=== PATIENT | male | born 1995 | race African-American/Black ===

== ENCOUNTER 2020-09-18 10:45 | Emergency (ER) | payer OTHER, SELFPAY ==
[2020-09-18 10:52] VITALS: BP 111/69; PULSE 91; RESP 18; TEMP 36.3; O2SAT 99; BMI 17.6
--- NOTE | 2020-09-18 10:58 | ED_ITS ---
HPI - Nausea/Vomiting/Diarrhea General Chief complaint: Nausea/Vomiting/Diarrhea Stated complaint: ETOH USE W/VOMITING Time Seen by Provider: 09/18/20 10:57 Source: patient Mode of arrival: ambulatory Limitations: no limitations History of Present Illness HPI Narrative: Patient presents to the for vomiting. Patient states last night he was drinking alcohol all night. Patient states he drank large 3 bottles last night and did not have any food and this morning woke up vomiting. Patient denies any abdominal pain. Patient admits to smoking marijuana also Associated nausea: Yes Related Data Previous Rx's Medication Instructions Recorded famotidine [Pepcid] 20 mg PO BID #20 tab 09/18/20 ondansetron HCl [Zofran] 4 mg PO Q6H PRN #8 tab 09/18/20 Allergies Allergy/AdvReac Type Severity Reaction Status Date / Time No Known Allergies Allergy Verified 09/18/20 10:54 [No Known Allergies*] Review of Systems Review of Systems: Yes all other systems are reviewed and are negative Constitutional: Constitutional: Reports as per HPI and Reports no additional constitutional complaints Eyes: Eyes: Reports as per HPI and Reports no additional eye complaints ENT: Reports system reviewed and no additional complaints, except as documented, Reports as per HPI and Denies odynophagia Cardiovascular: Cardiovascular: Reports as per HPI and Reports no additional cardiovascular complaints Respiratory: Respiratory: Reports as per HPI and Reports no additional respiratory complaints Gastrointestinal: Gastrointestinal: Denies abdominal pain, Reports nausea, Denies odynophagia, Reports vomiting and Denies hematemesis Musculoskeletal: Musculoskeletal: Reports no additional musculoskeletal complaints and Reports as per HPI Neurologic: Reports system reviewed and no additional complaints, except as documented and Reports as per HPI Psychiatric: Psychiatric: Reports no additional psychiatric complaints and Reports as per HPI [facility] Past Medical History Medical History (Updated 09/18/20 @ 13:55 by ANYA Jones) No known health problems Social History Social History Alcohol intake: current Patient Tobacco Use Status: Current everyday Tobacco user Use of substances other than those prescribed or required for medical reasons: Yes Substance Use Type: Marijuana Advance Directives: No Advance Directives Information Provided: No Physical Exam Vital Signs: Vital Signs: Last Vital Signs Temp 97.4 F 09/18/20 10:52 Pulse 91 09/18/20 10:52 Resp 18 09/18/20 10:52 BP 111/69 09/18/20 10:52 Pulse Ox 99 09/18/20 10:52 Body Mass Index 17.6 Const: General: cooperative, healthy appearing, comfortable, no acute distress, well developed and acute distress Orientation/consciousness: patient oriented x3 HENMT: Head: Yes normal to inspection, Yes No palpable skull fracture present, Yes normocephalic and Yes atraumatic Eyes: General: appearance normal, both eyes and all related structures Neck: Neck: Yes normal visual inspection, Yes full ROM, Yes no lymphadenopathy, Yes no meningeal signs, Yes trachea midline, Yes supple and No tender Chest: Chest palpation & inspection: normal inspection of the chest and normal palpation of entire chest wall Resp: Effort & Inspection: normal respiratory effort and able to speak in complete sentences Auscultation: clear to auscultation bilaterally Cardio: Jugular venous distension: no JVD Heart sounds: S1 normal heart sound present and S2 normal heart sound present GI: Inspection: Yes normal to inspection and No abdominal wall ecchymosis Palpation (GI): Soft to palpation, not firm, nontender, no guarding and not rigid : General: No CVA tenderness and Yes no CVA tenderness Back/Spine/Pelvis: Back: no CVA tenderness, No CVA tenderness and No back tenderness Skin: General skin exam: no rashes or lesions noted and elasticity normal Neuro: General: patient oriented x3, gait normal, no meningeal signs and CN's II-XI intact bilaterally Cranial nerves: Yes CN's II-XII intact bilaterally Extrem: General: Yes normal to inspection and Yes full ROM Psych: Appearance: grossly normal, well kempt and not disheveled Course Course Course Narrative: Patient will be treated as alcoholic gastritis. Patient will be given GI cocktail, IV fluids, and labs will be drawn. Reevaluation(s) Reevaluation #1: Patient now comfortable [place]. [place] [id number]. Patient was seen here last year with similar presentation for alcohol intoxication also had elevated white blood cell count and normal abdominal CT scan. For patient's history of chronic elevated white blood cell count. Abdomen is totally benign. LFTs at baseline. Time: 11:20 Reevaluation #2: I went speak to patient and re-evaluated him. Patient once again abdomen is benign soft nontender. Patient states he never had any abdominal pain and does not have abdominal pain presently. Patient states he feels much better. Patient educated that he should eat when he drinks and that he they should practice brat diet and oral hydration to resolve mild dehydration.. Patient also informs she cut down marijuana. No indication for CT scan of abdomen, due to patient not having any abdominal pain. Diagnosis alcoholic gastritis. MDM - Nausea/Vomiting/Diarrhea MDM Narrative Medical decision making narrative: Alcoholic gastritis Lab Data Result diagrams: 09/18/20 11:20 09/18/20 11:20 Labs: Lab Results 09/18/20 09/18/20 09/18/20 Range/Units 11:20 11:20 11:20 WBC 17.7 H (4.8-10.8) X10*3/uL RBC 4.49 L (4.60-5.80) X10*6/uL Hgb 14.3 (14.0-18.0) g/dl Hct 42.4 (42-52) % MCV 94.4 (80-98) fL MCH 31.8 (27.0-33.0) pg MCHC 33.7 (31.0-36.0) g/dl RDW 13.5 (11.0-16.0) % Plt Count 210 (160-400) X10*3/uL MPV 11.7 (9.4-12.4) fL Immature Gran % (Auto) Cancelled Neut % (Auto) Cancelled Lymph % (Auto) Cancelled Candler % (Auto) Cancelled Eos % (Auto) Cancelled Baso % (Auto) Cancelled Lymph # (Auto) Cancelled [place] # (Auto) Cancelled Eos # (Auto) Cancelled Baso # (Auto) Cancelled Abs Immat Gran (auto) Cancelled Absolute Neuts (auto) Cancelled Absolute Nucleated RBC 0.000 (0.0-0.012) X10*3/uL Nucleated RBC % (auto) 0.0 (0.0-0.2) /100WBC Neutrophils % (Manual) 79 H (45-73) % Band Neutrophils % 1 L (3-5) % Lymphocytes % (Manual) 16 L (20-40) % Monocytes % (Manual) 4 (2-11) % Abs Neuts (Manual) 14.2 H (2.2-7.9) X10*3/uL Lymphocytes # (Manual) 2.8 (0.6-4.8) X10*3/uL Monocytes # (Manual) 0.7 (0.0-1.2) X10*3/uL Platelet Estimate NORMAL (NORMAL) Plt Morphology Comment NORMAL RBC Morphology NORMAL Sodium 141 (135-145) mmol/L Potassium 3.9 (3.3-5.1) mmol/L Chloride 106 (96-108) mmol/L Carbon Dioxide 16 L (22-29) mmol/L Anion Gap 23 H (12-20) BUN 24 H (9-16) mg/dL Creatinine 0.94 (0.5-1.4) mg/dL Estim Creat Clear Calc 102.8 Estimated GFR > 60 Random Glucose 110 (60-115) mg/dL Calcium 9.8 (8.4-10.2) mg/dL Total Bilirubin 0.6 (0.0-1.0) mg/dL Direct Bilirubin 0.3 (0.0-0.5) mg/dL AST 53 H (5-37) U/L ALT 44 H (0-40) U/L Alkaline Phosphatase 140 H (39-117) U/L Total Protein 7.9 (6.5-8.0) g/dL Albumin 4.9 (3.5-5.0) g/dL Lipase 9 (8-78) U/L Ethyl Alcohol < 10 mg/dL Discharge Plan Discharge Clinical Impression: Alcoholic gastritis Patient Disposition: Home, Self-Care Instructions: Gastritis (ED), Acute Nausea and Vomiting (ED) Additional Instructions: Return to the ED for any abdominal pain, inability to tolerate solid food/liquid, diarrhea, blood in stool, fever, chills, intractable nausea, vomiting, weakness, dizziness, or any other concerning symptoms. Recommend BRAT Diet ( Bannana, Rice, Apple sauce, [place]). Please follow-up with PCP Prescriptions: New famotidine [Pepcid] 20 mg tablet 20 mg PO BID Qty: 20 RF: 0 ondansetron HCl [Zofran] 4 mg tablet 4 mg PO Q6H PRN (Reason: nausea and vomiting) Qty: 8 RF: 0 Interventions: ED Discharge Assessment Last Done: 09/18/20 14:12 Discharge Date/Time: 09/18/20 14:12 Print Language: Swedish
[2020-09-18] MEDS: Lidocaine HCl Viscous 2 % 15 ML SOLUTION MUCOUS MEM (11:17)
[2020-09-18] MEDS: PHENobarb/Hyoscy/Atropine/Scop 10 ML ELIXIR PO (11:17)
[2020-09-18] MEDS: diphenhydrAMINE HCL 50 MG/ML VIAL IVPUSH (11:18)
[2020-09-18] MEDS: 0.9 % Sodium Chloride 1,000 ML 999 ML IV (11:18)
[2020-09-18] MEDS: Famotidine/PF 20 MG/2 ML VIAL IVPUSH (11:18)
[2020-09-18] MEDS: ondansetron HCL 4 MG/2 ML VIAL IVPUSH (11:18)
[2020-09-18 11:31] LABS: Hematocrit 42.4 % (42-52); Hemoglobin 14.3 g/dl (14.0-18.0); Mean Corpuscular HGB Conc 33.7 g/dl (31.0-36.0); Mean Corpuscular Hemoglobin 31.8 pg (27.0-33.0); Mean Corpuscular Volume 94.4 fL (80-98); Mean Platelet Volume 11.7 fL (9.4-12.4); Platelet Count 210 X10*3/uL (160-400); Red Blood Count 4.49 X10*6/uL (4.60-5.80); Red Cell Distribution Width 13.5 % (11.0-16.0)
[2020-09-18 11:37] LABS: WBC ABN SCTR FOR CBC 1
[2020-09-18] MEDS: Metoclopramide HCl 10 MG/2 ML VIAL IVPUSH (11:43)
[2020-09-18 12:04] LABS: Band Neutrophils Percent 1 % (3-5); Ethanol < 10 mg/dL; Lymphocytes Percent Manual 16 % (20-40); Monocytes Percent Manual 4 % (2-11); Neutrophils Percent Manual 79 % (45-73)
[2020-09-18 12:05] LABS: Lymphocytes Absolute Manual 2.8 X10*3/uL (0.6-4.8); Monocytes Absolute Manual 0.7 X10*3/uL (0.0-1.2); Neutrophils Absolute Manual 14.2 X10*3/uL (2.2-7.9); Platelet Estimate NORMAL (NORMAL); Platelet Morphology Comment NORMAL; RBC Morphology NORMAL; White Blood Count 17.7 X10*3/uL (4.8-10.8)
[2020-09-18 12:26] LABS: Alanine Aminotransferase 44 U/L (0-40); Albumin Level 4.9 g/dL (3.5-5.0); Alkaline Phosphatase 140 U/L (39-117); Anion Gap 23 (12-20); Aspartate Amino Transferase 53 U/L (5-37); Bilirubin Direct 0.3 mg/dL (0.0-0.5); Bilirubin Total 0.6 mg/dL (0.0-1.0); Blood Urea Nitrogen 24 mg/dL (9-16); Calcium 9.8 mg/dL (8.4-10.2); Carbon Dioxide 16 mmol/L (22-29); Chloride 106 mmol/L (96-108); Creatinine Clr Calc Pharmacy 102.8; Estimated Glomerular Filt Rate > 60; Glucose Random 110 mg/dL (60-115); Lipase 9 U/L (8-78); Potassium 3.9 mmol/L (3.3-5.1); Sodium 141 mmol/L (135-145); Total Protein 7.9 g/dL (6.5-8.0)
== END 2020-09-18 14:12 | disposition home or self-care (01) ==
PROVIDERS: Physician Assistant; Emergency Provider Emergency Medicine
DX: K29.20 Alcoholic gastritis without bleeding (principal)
CPT/HCPCS: 36415; 80053; 80076; 82077; 82248; 83690; 85007; 85027; 96361; 96374; 96375; 99284; J1200; J2405; J2765

== ENCOUNTER 2021-01-01 14:08 | Emergency (ER) | payer OTHER, SELFPAY ==
[2021-01-01 14:12] VITALS: BP 124/74; PULSE 70; O2SAT 100
== END 2021-01-01 16:03 | disposition left against medical advice (07) ==
PROVIDERS: Emergency Provider Emergency Medicine
DX: R31.9 Hematuria, unspecified (principal)

== ENCOUNTER 2021-04-14 11:20 | Outpatient (REF) | payer OTHER, SELFPAY ==
[2021-04-14 13:22] LABS: Binax Internal Control QC Valid; Binax Lot number: 9864; Binax Now Covid-19 Ag Negative (Negative)
== END 2021-04-14 11:21 | disposition home or self-care (01) ==
LOC: HO.LAB 11:20
PROVIDERS: Visit Provider Internal Medicine
DX: Z20.822 Contact with and (suspected) exposure to COVID-19 (principal)
CPT/HCPCS: C9803

== ENCOUNTER 2022-01-09 11:30 | Emergency (ER) | payer OTHER, SELFPAY ==
--- NOTE | ~2022-01-09 | XR_ITS ---
EXAMINATION: XR HAND, RIGHT CLINICAL INFORMATION: Fall, trauma, pain, difficulty extending fingers. COMPARISON: None TECHNIQUE: Right hand is imaged in 3 views. FINDINGS: There is subtle oblique radiolucency at neck fourth metacarpal suspicious for fracture. Similarly, there is a subtle cortical irregularity at junction base and proximal shaft fifth metacarpal also suspicious for fracture. The remainder of the bony structures appear intact. There is no dislocation or destructive process. The ulnar variance is neutral. The pronator quadratus fat pad appears normal. XR/XR hand RT 2V IMPRESSION: -Suspect nondisplaced fractures neck 4th metacarpal and base/proximal shaft 5th metacarpal.
[2022-01-09 11:35] VITALS: BP 116/76; PULSE 82; RESP 16; TEMP 37.1; O2SAT 99; BMI 17.3
[2022-01-09] MEDS: Acetaminophen 325 MG TABLET 975 MG PO (12:59)
--- NOTE | 2022-01-09 16:05 | ED_ITS ---
HPI - Extremity Problem General Chief complaint: Extremity Injury, Upper Stated complaint: fall/wrist INJ Time Seen by Provider: 01/09/22 15:33 Source: patient Mode of arrival: ambulatory Limitations: no limitations History of Present Illness HPI Narrative: This is a 26-year-old male presenting to the emergency department with complaints of 4th and 5th metacarpal pain since Saturday 3 days ago. Patient tells me he fell while going up the stairs and landed onto an outstretched hand. He tells me he immediately started experiencing pain and swelling to his hand. He tells me has a hard time straightening out his 4th and 5th digits. Denies numbness or tingling. He tells me he fell he did not hit his head or lose consciousness. Related Data Previous Rx's Medication Instructions Recorded famotidine 20 mg tablet (Pepcid) 20 mg PO BID #20 tabs 09/18/20 ondansetron HCl 4 mg tablet 4 mg PO Q6H PRN nausea and 09/18/20 (Zofran) vomiting #8 tabs ketorolac 10 mg tablet 10 mg PO TID PRN pain 5 days #15 01/09/22 tabs Allergies Allergy/AdvReac Type Severity Reaction Status Date / Time No Known Allergies Allergy Verified 09/18/20 10:54 [No Known Allergies*] Review of Systems Review of Systems: Constitutional : No Weight loss, No Fever, No Chills, No Fatigue, No Malaise ENT/Mouth : No sore throat, No Rhinorrhea Eyes: No Eye Pain, No Swelling, No Redness Cardiovascular : No Chest Pain, No SOB, No Dyspnea on Exertion, No Orthopnea, No Edema, No Palpitations Respiratory : No Cough, No Sputum, No Wheezing Gastrointestinal : No Nausea, No Vomiting, No Diarrhea, No Constipation, No abdominal Pain, No Hematochezia, No Melena Genitourinary : No Dysuria, No Urinary Frequency, No Hematuria, Musculoskeletal : + joint pain, No Myalgias, + Joint Swelling Skin : No Skin Lesions, No rash Neuro : No Weakness, No Numbness, No Dizziness, No Headache Psych : No Anxiety/Panic, No Depression All other systems reviewed and are negative Yes all other systems are reviewed and are negative PMFSH Past Medical History Attestation statement: The following information was validated with the patient. Source: old records reviewed and nursing notes reviewed Medical History No known health problems Social History Social History Alcohol intake: current Patient Tobacco Use Status: Current everyday Tobacco user Substance Use Type: Marijuana Advance Directives: No Advance Directives Information Provided: No Physical Exam Vital Signs: Vital Signs: Last Vital Signs Temp 98.7 F 01/09/22 11:35 Pulse 82 01/09/22 11:35 Resp 16 01/09/22 11:35 BP 116/76 01/09/22 11:35 Pulse Ox 99 01/09/22 11:35 O2 Del Method 01/09/22 11:35 BMI result Body Mass Index 17.3 vss Appearance: Alert.? Oriented X3.? No acute distress.? Head: Normocephalic, atraumatic, no step-offs or deformities Eyes: Pupils equal, round and reactive to light.? ENT: Pharynx normal.? Neck: Normal inspection.? Neck supple.? CVS: Normal heart rate and rhythm.? Pulses normal.? Respiratory: No respiratory distress.? Breath sounds normal.? Abdomen: Soft and nontender.? Skin: Skin warm and dry.? Normal skin color.? Normal skin turgor.? Extremities: No lower extremity edema.? No calf ttp. 5/5 strength to bilateral upper and lower extremities. + pain with palpation to 4th and 5th right metacarpals. Overlying swelling. Pain with straining of 4th and 5th digits. 2+ radial pulses equal bilateral. Normal sensation to bilateral upper extremity digits. Capillary refill less than 2 seconds equal bilateral. No wrist drop bilaterally. Neuro: Oriented X 3.? No motor deficit.? No sensory deficit. CN 2-12 intact Course Reevaluation(s) Reevaluation #1: There is a nondisplaced fracture of the neck of the 4th metacarpal on bas e/proximal shaft of the 5th metacarpal. Patient will be placed in an ulnar gutter splint. Advised to follow-up with orthopedics and return with new or worsening symptoms. At this time I feel comfortable discharge home. Educated on rest, ice, compress and elevate. Educated to take ibuprofen every 6 hours, Tylenol every 4 as needed for pain or discomfort. Time: 16:14 Reevaluation #2: Patient was placed in an ulnar gutter splint, tolerated procedure well, after placing splint neurovascular status intact. Time: 16:40 MDM - Extremity (Nontraumatic) MDM Narrative Medical decision making narrative: 1600 26-year-old male presents with hand pain since Saturday status post falling while going up the stairs, landing onto an outstretched hand. Denies numbness or tingling. On physical examination pain with palpation to right 4th and 5th metacarpals, with overlying swelling. Neurovascularly intact. Concerns for possible fracture/dislocation. Plan at this time is to obtain plain films. Medical Records Attestation: I reviewed the patient's medical records. Lab Data Attestation: I reviewed the patient's lab results. Critical Care Time Critical Care Time Critical Care Time: No Discharge Plan Discharge Clinical Impression: Fracture, metacarpal Patient Disposition: Home, Self-Care Instructions: Hand Fracture (ED), R.I.C.E. Treatment (ED) Additional Instructions: Take your medications as prescribed. If you were prescribed antibiotics today, it is important that you take your medication to their entirety, do not skip any doses, do not finish them early. Follow-up with your primary care provider this week. Return to the emergency department with new or worsening symptoms. Such as fevers, chills, chest pain, shortness of breath, nausea, vomiting, dizziness, headache, vision changes, lethargy, numbness, tingling, inability to wiggle fingers, inability to feel hand, severe swelling or pain In case of emergency call 911 Ketorolac has been sent to your pharmacy. Please do not take this with any other NSAIDs, aspirin or blood thinners. Avoid alcohol while taking this. XR/XR hand RT 2V IMPRESSION: -Suspect nondisplaced fractures neck 4th metacarpal and base/proximal shaft 5th metacarpal. Prescriptions: New ketorolac 10 mg tablet 10 mg PO TID PRN (Reason: pain) 5 Days Qty: 15 0RF Rx Instructions: Tolerated IM in the department No Action famotidine [Pepcid] 20 mg tablet 20 mg PO BID Qty: 20 0RF ondansetron HCl [Zofran] 4 mg tablet 4 mg PO Q6H PRN (Reason: nausea and vomiting) Qty: 8 0RF Referrals: [facility] [Provider Group] - 1 week Physician,Unknown J [Primary Care Provider] - 2 days Stand Alone Forms: Work/School Release
[2022-01-09] MEDS: Ketorolac Tromethamine 15 MG/ML VIAL 30 MG IM (16:43)
--- NOTE | 2022-01-09 17:06 | PC.NURSE ---
Pt evaluated by Anna JOYNER PT AWAKE, ALERT AND ORIENTED X 3. SKIN WARM AND DRY. RESP UNLABORED. DENIES N/V. MEDICATED FOR PAIN. SPLINT APPLIED BY PCT. +[facility]. PT TOLERATED WITHOUT INCIDENT. PLAN IS FOR DC HOME AND F/U WITH ORTHO. PT AGREEABLE TO PLAN
== END 2022-01-09 17:08 | disposition home or self-care (01) ==
PROVIDERS: Emergency Provider Emergency Medicine
DX: S62.304A Unspecified fracture of fourth metacarpal bone, right hand, initial encounter for closed fracture (principal); M79.641 Pain in right hand; W10.9XXA Fall (on) (from) unspecified stairs and steps, initial encounter; Y93.9 Activity, unspecified; Y92.9 Unspecified place or not applicable; Y99.9 Unspecified external cause status
CPT/HCPCS: 29130; 73120; 96372; 99283; 99284; J1885

== ENCOUNTER 2022-01-23 | Outpatient (REF) | payer OTHER, SELFPAY ==
--- NOTE | ~2022-01-23 | XR_ITS ---
EXAMINATION: XR HAND, RIGHT CLINICAL INFORMATION: Pain COMPARISON: 01/09/2022 TECHNIQUE: PA, lateral, and oblique views of the right hand. FINDINGS: There is lucency through the base of fifth metacarpal bone are consistent with the appearance of undisplaced fracture. Additionally, there is deformity of distal metadiaphysis of the second metacarpal bone, most likely related to healing of fracture. Soft tissues unremarkable. XR/XR hand RT min 3V IMPRESSION: Healing fracture of the base of the fifth metacarpal bone and fourth distal metadiaphysis
== END 2022-01-23 00:01 | disposition home or self-care (01) ==
LOC: HO.HOSX
PROVIDERS: Visit Provider Physician Assistant
DX: S62.364D Nondisplaced fracture of neck of fourth metacarpal bone, right hand, subsequent encounter for fracture with routine healing (principal); S62.346D Nondisplaced fracture of base of fifth metacarpal bone, right hand, subsequent encounter for fracture with routine healing; W10.9XXD Fall (on) (from) unspecified stairs and steps, subsequent encounter
CPT/HCPCS: 73130; 99202

== ENCOUNTER 2022-02-06 11:52 | Outpatient (REF) | payer OTHER, SELFPAY ==
--- NOTE | ~2022-02-06 | XR_ITS ---
EXAMINATION: XR HAND, RIGHT CLINICAL INFORMATION: Right hand pain. COMPARISON: Comparison is made to right hand radiographs dated 01/09/2022 and 01/23/2022. TECHNIQUE: PA, lateral, and oblique views of the right hand. FINDINGS: Again seen is an angulation fracture of the distal metaphysis of the fourth metacarpal. Deformity in the distal aspect of the fifth metacarpal is also seen. Remainder the digits are intact. The carpal bones are normally aligned. The distal radius and ulna are intact. The soft tissues are unremarkable. XR/XR hand RT min 3V IMPRESSION: 1. Distal fourth metacarpal fracture with similar angulation and no evidence for significant interval healing. Distal fifth metacarpal findings are age-indeterminate could be secondary to old healed fracture without significant interval change.
== END 2022-02-06 11:53 | disposition home or self-care (01) ==
LOC: HO.HOSX 11:52
PROVIDERS: Visit Provider Physician Assistant
DX: S62.364D Nondisplaced fracture of neck of fourth metacarpal bone, right hand, subsequent encounter for fracture with routine healing (principal); S62.346D Nondisplaced fracture of base of fifth metacarpal bone, right hand, subsequent encounter for fracture with routine healing
CPT/HCPCS: 73130; 99212

== ENCOUNTER 2022-02-12 07:35 | Outpatient (REF) | payer OTHER, SELFPAY ==
--- NOTE | ~2022-02-12 | XR_ITS ---
EXAMINATION: XR HAND, RIGHT CLINICAL INFORMATION: Pain COMPARISON: Right hand 02/06/2022 and 01/09/2022 TECHNIQUE: PA, lateral, and oblique views of the right hand. FINDINGS: There is a healing fracture distal fourth metacarpal and proximal fifth metacarpal. The fracture lines are not visualized. The soft tissues are normal. No new fracture seen. XR/XR hand RT min 3V IMPRESSION: Slowly fracture distal fourth metacarpal and proximal fifth metacarpal. The fracture lines are not visualized.
== END 2022-02-12 07:36 | disposition home or self-care (01) ==
LOC: HO.HOSX 07:35
PROVIDERS: Visit Provider Physician Assistant
DX: M79.641 Pain in right hand (principal)
CPT/HCPCS: 73130

== ENCOUNTER 2022-02-23 17:08 | Emergency (ER) | payer OTHER, SELFPAY ==
--- NOTE | 2022-02-23 18:15 | ED_ITS ---
HPI - URI/Sore Throat General Chief Complaint: Nausea/Vomiting/Diarrhea Stated Complaint: cough,fever,vomitting, watery eyes Time Seen by Provider: 02/23/22 20:37 Source: patient Mode of arrival: ambulatory Limitations: no limitations History of Present Illness HPI Narrative: Patient is a 26 year male presents to the emergency department for evaluation of productive cough, fever, nausea, vomiting, diarrhea. Symptom onset was last night. Reports his mother has tested positive for influenza, both of his daughters are also sick for the past 2 days with similar symptoms. Related Data Home Medications Medication Instructions Recorded Confirmed No Known Home Meds 02/12/22 02/12/22 Allergies Allergy/AdvReac Type Severity Reaction Status Date / Time No Known Allergies Allergy Verified 02/23/22 18:15 [No Known Allergies*] Review of Systems Review of Systems: Constitutional: Positive fever. No chills. No weakness. Positive fatigue. ENT/ Mouth: No Ear Pain, positive Nasal Congestion, no sore throat, No Rhinorrhea, No Swallowing Difficulty Skin: No rash or itching. Cardiovascular: No chest pain. No palpitations. Respiratory: No shortness of breath. Positive cough. No sputum production. Gastrointestinal: Positive nausea. Positive vomiting. Positive diarrhea. No abdominal pain. Genitourinary: No burning micturition. No urinary frequency. Neurologic: No headache. No dizziness. No syncope. No numbness or tingling in the extremities. Musculoskeletal: No muscle pain. No back pain. No joint pain or stiffness. Yes all other systems are reviewed and are negative PMFSH Past Medical History Attestation statement: The following information was validated with the patient. Source: old records reviewed Medical History No known health problems PTSD (post-traumatic stress disorder) Social History Social History Alcohol intake: current Patient Tobacco Use Status: Current everyday Tobacco user Substance Use Type: Marijuana Advance Directives: No Advance Directives Information Provided: No Current occupational status: employed Current occupation: [employer] Physical Exam Vital Signs: Vital Signs: Last Vital Signs Temp 97.9 F 02/23/22 18:16 Pulse 63 02/23/22 18:16 Resp 16 02/23/22 18:16 BP 124/71 02/23/22 18:16 Pulse Ox 98 02/23/22 18:16 O2 Del Method 02/23/22 18:16 BMI result Body Mass Index 15.5 Vital signs have been reviewed as normal and appeared to be correct. Blood pressure normal.? Heart rate normal.? Respiration rate normal. Temperature normal.? Oxygen saturation normal. Appearance: Alert.?Oriented to person, place and time. No acute distress.?Normal affect. Eyes: Pupils equal, round and reactive to light.? ENT: TM normal bilaterally. Pharynx normal.?? Neck: Normal inspection.? Neck supple.??No cervical adenopathy CVS: Heart sounds normal. Normal heart rate and rhythm.? Pulses normal.?? Respiratory: No respiratory distress.? Lung sounds clear to auscultation bilaterally?? Abdomen: Soft and non-tender. Normoactive bowel sounds. Skin: Skin warm and dry.? Normal skin color.? ? Extremities: No lower extremity edema.? Neuro: Moves all extremities spontaneously. Sensation intact bilaterally. No motor deficits. Ambulates with normal steady gait. Course Course Course Narrative: RME: Patient is a 26 year male presents to the emergency department for evaluation of productive cough, fever, nausea, vomiting, diarrhea. Symptom onset was last night. Reports his mother has tested positive for influenza, both of his daughters are also sick for the past 2 days with similar symptoms. PE: No apparent distress, vital signs stable, abdominal examination benign, LSCTA Plan: COVID-19 testing, influenza testing Reevaluation(s) Reevaluation #1: COVID-19 and influenza testing have resulted and are negative. Examination not consistent with pneumonia. No signs of systemic toxicity. Abdominal examination is benign, low suspicion for acute abdomen. Suspect viral syndrome as a source for symptoms. Eating potato chips and drinking soda in the emergency department. Advised rest, acetaminophen/ibuprofen as needed for pain/fever, Robitussin for cough, frequent fluids, bland diet with slow progress ion as tolerated. Patient verbalized understanding. discharged home in stable condition. Time: 20:35 Medications Administered Discontinued Medications Generic Name Dose Route Start Last Admin Trade Name Freq PRN Reason Stop Dose Admin Ondansetron HCl 4 mg 02/23/22 18:18 02/23/22 18:23 Ondansetron Odt 4 Mg Tab.Rapdis TRANSLINGU 02/23/22 18:19 4 mg ONCE ONE Administration MDM - URI/Sore Throat Medical Records Attestation: I reviewed the patient's medical records. Lab Data Attestation: I reviewed the patient's lab results. Labs: Lab Results 02/23/22 02/23/22 Range/Units 18:24 18:24 COVID-19 (THALIA) Negative (Negative) COVID-19 Clin Com See Note Influenza Type A (SHAI) Negative (Negative) Influenza Type B (SHAI) Negative (Negative) Influenza A & B Note See Note Discharge Plan Discharge Clinical Impression: Acute viral syndrome Patient Disposition: Home, Self-Care Instructions: Viral Syndrome (ED) Additional Instructions: Be sure to rest, stay well hydrated drinking plenty of fluids, eat small frequent meals. Tylenol/ibuprofen can be used as needed for fever/pain. [id number] cold medications may be helpful as well for symptoms. Saline nasal spray, humidifier may be helpful for nasal congestion. You may return to the emergency department with any new or worsening symptoms or concerns. Follow-up with your primary care provider as needed. Prescriptions: No Action No Known Home Meds Referrals: Physician,Unknown J [Physician] - Stand Alone Forms: Work/School Release Interventions: ED Discharge Assessment Last Done: 02/23/22 20:43 Discharge Date/Time: 02/23/22 21:02
[2022-02-23 18:16] VITALS: BP 124/71; PULSE 63; RESP 16; TEMP 36.6; O2SAT 98; BMI 15.5
[2022-02-23] MEDS: Ondansetron ODT 4 MG TAB.RAPDIS TRANSLINGU (18:23)
[2022-02-23 18:46] LABS: COVID-19 Test Negative (Negative); IDNOW Serial# BCCEAD1C
[2022-02-23 18:50] LABS: IDNOW Serial# 9DB6401D; Influenza A Negative (Negative); Influenza B2 Negative (Negative)
== END 2022-02-23 21:02 | disposition home or self-care (01) ==
LOC: HO.ED 20:44
PROVIDERS: Nurse Practitioner Family; Emergency Provider Emergency Medicine
DX: B34.9 Viral infection, unspecified (principal); R50.9 Fever, unspecified; Z20.822 Contact with and (suspected) exposure to COVID-19
CPT/HCPCS: 87502; 87635; 99282; 99283

== ENCOUNTER 2022-03-14 13:44 | Outpatient (REF) | payer OTHER, SELFPAY ==
[2022-03-14 14:29] LABS: COVID-19 Test Negative (Negative); IDNOW Serial# 16C4AD1C
== END 2022-03-14 13:45 | disposition home or self-care (01) ==
LOC: HO.LAB 13:44
PROVIDERS: Visit Provider Internal Medicine
DX: Z20.822 Contact with and (suspected) exposure to COVID-19 (principal)
CPT/HCPCS: 87635; C9803

== ENCOUNTER 2023-07-26 14:21 | Emergency (ER) | payer OTHER, SELFPAY ==
[2023-07-26 14:26] VITALS: BP 120/80; PULSE 85; O2SAT 99
--- NOTE | 2023-07-26 15:09 | PC.NURSE ---
attempted to call patient in triage. patient became verbally and physically agressive. Patient refusing to acknowledge alternative dispute resolution mediator. Verbally.
[2023-07-26 15:13] VITALS: BP 122/79; PULSE 70; RESP 18; TEMP 36.7; O2SAT 100; BMI 13.1
--- NOTE | 2023-07-26 15:13 | ED_ITS ---
HPI - General Adult General Chief complaint: Nausea/Vomiting/Diarrhea Stated complaint: VOMITING Time Seen by Provider: 07/26/23 15:24 Source: patient Mode of arrival: ambulatory Limitations: no limitations History of Present Illness HPI narrative: 27-year-old male brought by EMS for vomiting after drinking alcohol last night. Patient was on alcohol binge drinking last night and was vomiting had 1 episode of slight bright red blood. Brother was present during the incident. Patient denies any recent trauma. Right now emesis is clear. Patient denies any pmh of alcohol abuse Related Data Previous Rx's ?Medication ?Instructions ?Recorded famotidine 20 mg tablet (Pepcid) 20 mg PO BID 10 days #20 tabs 07/26/23 Allergies Allergy/AdvReac Type Severity Reaction Status Date / Time No Known Allergies Allergy Verified 07/26/23 15:17 [No Known Allergies*] Review of Systems 2 Review of Systems: Vomiting after drinking alcohol. Yes all other systems are reviewed and are negative PMFSH Past Medical History Medical History No known health problems PTSD (post-traumatic stress disorder) Social History Social History Alcohol intake: current Alcohol intake frequency: a few times a month Alcohol type: beer and hard liquor Patient Tobacco Use Status: Current everyday Tobacco user Smoked in Last 30 Days: Yes Use of substances other than those prescribed or required for medical reasons: No Substance Use Type: Marijuana Advance Directives: No Advance Directives Information Provided: No Do you have a plan to hurt others: No Plan Current occupational status: employed Current occupation: [employer] Physical Exam ED Vital Signs: Vital Signs - 24 hr 07/26/23 15:13 Temperature 98.0 F Pulse Rate 70 Respiratory Rate 18 Blood Pressure 122/79 Pulse Oximetry 100 Oxygen Delivery Method Room Air BMI result Body Mass Index 13.1 Const General: cooperative, healthy appearing, comfortable, no acute distress, well developed, alert, awake and Physically active Orientation/consciousness: oriented to person, oriented to place, oriented to time and patient oriented x3 HENMT Head: Yes normal to inspection, Yes No palpable skull fracture present, Yes normocephalic, Yes atraumatic and No abrasion Eyes General: appearance normal, both eyes and all related structures Neck Neck: Yes normal visual inspection, Yes full ROM, Yes no lymphadenopathy, Yes no meningeal signs, Yes trachea midline, Yes supple, No anterior neck swelling and No tender Chest Chest palpation & inspection: normal inspection of the chest and normal palpation of entire chest wall Resp Effort & Inspection: normal respiratory effort and able to speak in complete sentences Auscultation: clear to auscultation bilaterally Cardio Jugular venous distension: no JVD Heart sounds: S1 normal heart sound present and S2 normal heart sound present GI Inspection: Yes normal to inspection Palpation (GI): Soft to palpation, not firm, nontender, no guarding and not rigid General: Yes no CVA tenderness Back/Spine/Pelvis Back: no CVA tenderness and No back tenderness Skin General skin exam: no rashes or lesions noted, elasticity normal and turgor normal Neuro General: oriented to person, oriented to place, oriented to time, patient oriented x3, gait normal, tone normal, moves all extremities, Normal light touch and pain sensation, no meningeal signs, no focal motor deficits, CN's II-XI intact bilaterally and normal sensation to monofilament Extrem General: Yes normal to inspection, Yes full ROM and Yes capillary refill normal Psych Appearance: grossly normal, well kempt and not disheveled Course Course Course Narrative: RME performed by Rosalva Gauthier PA-C. Patient is a 27 year old assigned male at presenting to the emergency department with nausea, vomiting, and feeling generally unwell after drinking alcohol last night. Detailed physical exam and review of systems are deferred to the spray foam installer. Labs and swabs ordered. Patient placed back in the waiting room pending room availability and results. Medications Administered Discontinued Medications Generic Name Dose Route Start Last Admin Trade Name Tommy PRN Reason Stop Dose Admin Al Hydroxide/Mg Hydroxide 30 ml 07/26/23 15:58 07/26/23 16:16 Magnesium Hydrox/Alum Hydrox 30 Ml Oral.Susp PO 07/26/23 15:59 30 ml ONCE ONE Administration Belladonna Alkaloids/Phenobarbital 10 ml 07/26/23 15:58 07/26/23 16:15 Phenobarb/Hyoscy/Atropine/Scop 10 Ml Elixir PO 07/26/23 15:59 10 ml ONCE ONE Administration Famotidine 20 mg 07/26/23 15:58 07/26/23 16:16 Famotidine/Pf 20 Mg/2 Ml Vial IVPUSH 07/26/23 15:59 20 mg ONCE ONE Administration Sodium Chloride 1,000 mls @ 999 mls/hr 07/26/23 15:15 07/26/23 17:08 Ns IV 07/26/23 16:15 Infused .Q1H1M ALISSA Infusion Sodium Chloride 1,000 mls @ 999 mls/hr 07/26/23 16:11 07/26/23 16:42 Ns IV 07/26/23 17:11 999 mls/hr .Q1H1M STA Administration Lidocaine HCl 15 ml 07/26/23 15:58 07/26/23 16:15 Lidocaine Hcl Viscous 2 % 15 Ml Solution MUCOUS MEM 07/26/23 15:59 15 ml ONCE ONE Administration Ondansetron HCl 4 mg 07/26/23 15:14 07/26/23 15:53 Ondansetron Hcl 4 Mg/2 Ml Vial IVPUSH 07/26/23 15:15 4 mg ONCE ONE Administration Medical Decision Making Medical Decision Making [facility] Narrative: 27-year-old male drinking large amounts of alcohol last night with vomiting since last night 1 episode of vomiting slight blood and vomiting this morning but without any blood. Abdomen is benign on palpation. Labs fluid ordered. 6:57pm; patient's symptoms resolved with fluids in GI cocktail. Patient was in mild alcohol ketoacidosis which was resolved and improved to with IV fluids. Patient also positive for COVID. Patient does not have any respiratory symptoms. Patient explained worrisome sign informed to return to the ED if he has them. Beta hyroxy was elevated due to mild alcoholic ketao acidosis. Differential Diagnosis Differential Diagnoses: The differential diagnosis associated with the presentation includes ( alcoholic gastritis, GERD, pancreatitis) Admission/Observation Consideration of admission/observation: Escalation of care including admission/observation considered Lab Data [facility] Lab Attestation statement: I reviewed the patient's lab results. 07/26/23 15:46 07/26/23 18:21 Labs: Lab Results 07/26/23 07/26/23 07/26/23 Range/Units 15:46 17:25 18:21 WBC 11.8 H (4.8-10.8) X10*3/uL RBC 4.50 L (4.60-5.80) X10*6/uL Hgb 13.8 L (14.0-18.0) g/dl Hct 41.7 L (42.0-52.0) % MCV 92.7 (80.0-98.0) fL MCH 30.7 (27.0-33.0) pg MCHC 33.1 (31.0-36.0) g/dl RDW 14.8 (11.0-16.0) % Plt Count 213 (160-400) X10*3/uL MPV 11.6 (9.4-12.4) fL Immature Gran % (Auto) 0.3 (0.0-0.4) % Neut % (Auto) 84.4 H (45-73) % Lymph % (Auto) 10.9 L (20-40) % [place] % (Auto) 4.1 (2-11) % Eos % (Auto) 0.1 (0-4) % Baso % (Auto) 0.2 (0-2) % Lymph # (Auto) 1.3 (1.2-4.9) X10*3/uL [place] # (Auto) 0.5 (0.1-1.2) X10*3/uL Eos # (Auto) 0.0 (0.0-0.4) X10*3/uL Baso # (Auto) 0.0 (0.0-0.2) X10*3/uL Abs Immat Gran (auto) 0.04 H (0.00-0.03) X10*3/uL Absolute Neuts (auto) 10.0 H (2.0-8.3) x10*3/uL Absolute Nucleated RBC 0.000 (0.0-0.012) X10*3/uL Nucleated RBC % (auto) 0.0 (0.0-0.2) /100WBC Smear Tech's Comments VERIFIED Sodium 143 141 (135-145) mmol/L Potassium 4.4 4.4 (3.3-5.1) mmol/L Chloride 106 111 H (96-108) mmol/L Carbon Dioxide 17 L 18 L (22-29) mmol/L Anion Gap 24 H 16 (12-20) BUN 22 H 17 H (9-16) mg/dL Creatinine 1.05 0.76 (0.5-1.4) mg/dL Estim Creat Clear Calc 74.3 102.7 Estimated GFR > 60 > 60 Random Glucose 69 123 H (60-115) mg/dL Estimat Average Glucose 114 mg/dL Hemoglobin A1c % 5.6 (<6.0) % Calcium 9.4 7.9 L D (8.4-10.2) mg/dL Magnesium 2.3 (1.6-2.6) mg/dL Total Bilirubin 0.5 0.4 (0.0-1.0) mg/dL AST 58 H 61 H (5-37) U/L ALT 34 36 (0-40) U/L Alkaline Phosphatase 117 92 (39-117) U/L Total Protein 8.2 H 7.1 (6.5-8.0) g/dL Albumin 4.7 4.0 (3.5-5.0) g/dL Lipase 6 L (8-78) U/L Beta-Hydroxybutyrate 1.98 H (0.02-0.27) mmol/L Urine Color Yellow Urine Appearance Clear Urine pH 5.5 (5.0-9.0) Ur Specific Maurice 1.020 (1.005-1.025) Urine Protein 30 (1+) H (Neg-Trace) mg/dL Urine Glucose (UA) Negative (Negative) mg/dL Urine Ketones 80 (Negative) mg/dL Urine Blood Trace H (Negative) Urine Nitrite Negative (Negative) Ur Leukocyte Esterase Negative (Negative) Urine RBC 0-2 (0-2) /HPF Urine WBC 0-5 (0-5) /HPF Ur Squamous Epith Cells 0-2 (0-2) /HPF Urine Bacteria None Seen (None Seen) Hyaline Casts 0-2 (0-2) /LPF Influenza Type A (PCR) NEGATIVE (Negative) Influenza Type B (PCR) NEGATIVE (Negative) RSV RNA Qual (PCR) NEGATIVE (Negative) SARS-CoV-2 RNA (RT-PCR) POSITIVE A (Negative) External Record Review External record reviewed: Other (Prior vsits) Discharge Plan Discharge Clinical Impression: GERD (gastroesophageal reflux disease), COVID-19, Alcoholic gastritis Patient Disposition: Home, Self-Care Instructions: Gastritis (ED), Gastroesophageal Reflux Disease (ED), COVID-19 (Coronavirus Disease 2019) (ED) Additional Instructions: recommend follow-up with primary care provider. Return to the ED immediately for vomiting blood, blood in stool, severe abdominal pain, dizziness, weakness, headache, chest pain, shortness of breath, or any other concerning symptoms. Prescriptions: New famotidine [Pepcid] 20 mg tablet 20 mg PO BID 10 Days Qty: 20 0RF Stand Alone Forms: Work/School Release Interventions: ED Discharge Assessment Last Done: 07/26/23 19:35 Discharge Date/Time: 07/26/23 19:35 Print Language: Luxembourgish
[2023-07-26] MEDS: ondansetron HCL 4 MG/2 ML VIAL IVPUSH (15:53)
[2023-07-26] MEDS: 0.9 % Sodium Chloride 1,000 ML 999 ML IV ×2 (15:53→16:42)
[2023-07-26 15:59] LABS: PLT CLUMP 1; SCAN SMEAR FLAG 1
[2023-07-26 16:01] LABS: Basophils Percent Auto 0.2 % (0-2); Eosinophils Percent Auto 0.1 % (0-4); Hematocrit 41.7 % (42.0-52.0); Hemoglobin 13.8 g/dl (14.0-18.0); Imm Gran Abs Auto 0.04 X10*3/uL (0.00-0.03); Imm Gran Pct Auto 0.3 % (0.0-0.4); Lymphocytes Absolute Auto 1.3 X10*3/uL (1.2-4.9); Lymphocytes Percent Auto 10.9 % (20-40); MANUAL DIFF FLAG SCAN; Mean Corpuscular HGB Conc 33.1 g/dl (31.0-36.0); Mean Corpuscular Hemoglobin 30.7 pg (27.0-33.0); Mean Corpuscular Volume 92.7 fL (80.0-98.0); Mean Platelet Volume 11.6 fL (9.4-12.4); Monocytes Absolute Auto 0.5 X10*3/uL (0.1-1.2); Monocytes Percent Auto 4.1 % (2-11); Neutrophils Percent Auto 84.4 % (45-73); Red Cell Distribution Width 14.8 % (11.0-16.0)
[2023-07-26 16:05] LABS: Estimated Average Glucose 114 mg/dL; Hemoglobin A1c % 5.6 % (<6.0)
[2023-07-26 16:06] LABS: White Blood Count 11.8 X10*3/uL (4.8-10.8)
[2023-07-26 16:09] LABS: Beta-Hydroxybutyrate 1.98 mmol/L (0.02-0.27)
[2023-07-26 16:10] LABS: Alanine Aminotransferase 34 U/L (0-40); Albumin Level 4.7 g/dL (3.5-5.0); Alkaline Phosphatase 117 U/L (39-117); Anion Gap 24 (12-20); Aspartate Amino Transferase 58 U/L (5-37); Bilirubin Total 0.5 mg/dL (0.0-1.0); Blood Urea Nitrogen 22 mg/dL (9-16); Calcium 9.4 mg/dL (8.4-10.2); Carbon Dioxide 17 mmol/L (22-29); Chloride 106 mmol/L (96-108); Creatinine Clr Calc Pharmacy 74.3; Estimated Glomerular Filt Rate > 60; Glucose Random 69 mg/dL (60-115); Lipase 6 U/L (8-78); Magnesium 2.3 mg/dL (1.6-2.6); Potassium 4.4 mmol/L (3.3-5.1); Sodium 143 mmol/L (135-145); Total Protein 8.2 g/dL (6.5-8.0)
[2023-07-26] MEDS: Lidocaine HCl Viscous 2 % 15 ML SOLUTION MUCOUS MEM (16:15)
[2023-07-26] MEDS: PHENobarb/Hyoscy/Atropine/Scop 10 ML ELIXIR PO (16:15)
[2023-07-26] MEDS: Famotidine/PF 20 MG/2 ML VIAL IVPUSH (16:16)
[2023-07-26] MEDS: Magnesium Hydrox/Alum Hydrox 30 ML ORAL.SUSP PO (16:16)
[2023-07-26 16:26] LABS: Platelet Count 213 X10*3/uL (160-400); SLIDE REVIEW VERIFIED
[2023-07-26 16:37] LABS: Influenza A PCR NEGATIVE (Negative); Influenza B PCR NEGATIVE (Negative); Resp Syncy Virus RNA Qual PCR NEGATIVE (Negative); SARS COV2 PCR INHOUSE POSITIVE (Negative)
[2023-07-26 17:45] LABS: Appearance Urine Clear; Color Urine Yellow; Glucose Urine UA Negative (Negative); Leukocyte Esterase Urine Negative (Negative); Nitrite Urine Negative (Negative); PH 5.5 (5.0-9.0); UMIC TRIGGER UACC YES; Urine Blood Trace (Negative); Urine Ketones 80 mg/dL (Negative); Urine Protein 30 (1+) mg/dL (Neg-Trace)
[2023-07-26 17:47] LABS: Bacteria Urine None Seen (None Seen); Hyaline Casts Urine 0-2 /LPF (0-2); RBC Urine 0-2 /HPF (0-2); Squamous Epithelial Cell Urine 0-2 /HPF (0-2); WBC Urine 0-5 /HPF (0-5)
[2023-07-26 18:50] LABS: Alanine Aminotransferase 36 U/L (0-40); Alkaline Phosphatase 92 U/L (39-117); Anion Gap 16 (12-20); Aspartate Amino Transferase 61 U/L (5-37); Bilirubin Total 0.4 mg/dL (0.0-1.0); Blood Urea Nitrogen 17 mg/dL (9-16); Calcium 7.9 mg/dL (8.4-10.2); Carbon Dioxide 18 mmol/L (22-29); Chloride 111 mmol/L (96-108); Creatinine Clr Calc Pharmacy 102.7; Estimated Glomerular Filt Rate > 60; Glucose Random 123 mg/dL (60-115); Potassium 4.4 mmol/L (3.3-5.1); Sodium 141 mmol/L (135-145); Total Protein 7.1 g/dL (6.5-8.0)
[2023-07-26 19:14] VITALS: BP 118/72; PULSE 72; RESP 20; TEMP 36.9; O2SAT 99
[2023-07-26 19:35] VITALS: BP 118/72; PULSE 72; RESP 20; TEMP 36.9; O2SAT 99
== END 2023-07-26 19:35 | disposition home or self-care (01) ==
PROVIDERS: Physician Assistant; Physician Assistant Medical; Emergency Provider Student in an Organized Health Care Education/Training Program
DX: U07.1 COVID-19 (principal); K29.20 Alcoholic gastritis without bleeding; K21.9 Gastro-esophageal reflux disease without esophagitis; F17.200 Nicotine dependence, unspecified, uncomplicated
CPT/HCPCS: 0241U; 36415; 80053; 81001; 82010; 83036; 83690; 83735; 85025; 96361; 96374; 96375; 99284; J2405

== ENCOUNTER 2023-07-29 02:28 | Emergency (ER) | payer OTHER, SELFPAY ==
[2023-07-29 02:36] VITALS: BP 114/75; PULSE 80; RESP 18; TEMP 36.6; O2SAT 99; BMI 15.2
--- NOTE | 2023-07-29 02:43 | ED_ITS ---
HPI - Dental/Oral General Chief complaint: Dental/Oral Stated complaint: dental pain Time Seen by Provider: 07/29/23 02:43 Source: patient Mode of arrival: ambulatory Limitations: no limitations History of Present Illness HPI Narrative: 27 yo male with PMH of PTSD here with c/o L upper dental pain for months but worse over 5 days no fevers. Has to have teeth pulled. Poor care of teeth. Plans to follow up with oral surgeon. MD Complaint: tooth pain Location: Tooth # (12, 13, 14, 15) Onset (ago): month(s) Duration: worsening Severity: severe Relieving factors: nothing Exacerbating factors: chewing, cold and heat Context: poor dental care Associated symptoms: gum swelling Treatment prior to arrival: oral analgesic Related Data Previous Rx's ?Medication ?Instructions ?Recorded famotidine 20 mg tablet (Pepcid) 20 mg PO BID 10 days #20 tabs 07/26/23 amoxicillin 875 mg-potassium 1 tab PO BID #14 tabs 07/29/23 clavulanate 125 mg tablet tramadol 50 mg tablet 50 mg PO Q6H PRN pain 3 days #12 07/29/23 tabs Allergies Allergy/AdvReac Type Severity Reaction Status Date / Time No Known Allergies Allergy Verified 07/29/23 02:39 [No Known Allergies*] Review of Systems Review of Systems: Constitutional : No Fever, No Chills ENT/Mouth : No swallowing difficulty, no change in voice, positive dental pain, positive jaw pain, positive facial swelling Eyes: No Eye Pain, No Swelling Cardiovascular : No Chest Pain, No SOB Respiratory : No Cough, No Sputum Gastrointestinal : No Nausea, No Vomiting, No Diarrhea Genitourinary : No Dysuria Musculoskeletal : No Myalgias Skin : No rash Neuro : No Weakness, No Numbness, No Headache All other systems reviewed and are negative PMFSH Past Medical History Attestation statement: The following information was validated with the patient. Source: old records reviewed Medical History PTSD (post-traumatic stress disorder) No known health problems Social History Social History Alcohol intake: current Alcohol intake frequency: a few times a month Alcohol type: beer and hard liquor Patient Tobacco Use Status: Current everyday Tobacco user Substance Use Type: Marijuana Do you have a plan to hurt others: No Plan Current occupational status: employed Current occupation: [employer] Physical Exam Vital Signs: Vital Signs: Last Vital Signs Temp 97.8 F 07/29/23 02:36 Pulse 80 07/29/23 02:36 Resp 18 07/29/23 02:36 BP 114/75 07/29/23 02:36 Pulse Ox 99 07/29/23 02:36 O2 Del Method Room Air 07/29/23 02:36 BMI result Body Mass Index 15.2 Appearance: Alert. Oriented X3. No acute distress. Eyes: Pupils equal, round and reactive to light. ENT: Pharynx normal. no trismus - L upper teeth calcified plaques overlying the teeth with hyperemic gingiva but no fluctuance noted Neck: Normal inspection. Neck supple. CVS: Normal heart rate and rhythm. Pulses normal. Respiratory: No respiratory distress. Breath sounds normal. Abdomen: Soft and nontender. Skin: Skin warm and dry. Normal skin color. Normal skin turgor. Extremities: No lower extremity edema. No calf ttp Neuro: Oriented X 3. No motor deficit. No sensory deficit. Medical Decision Making Medical Decision Making MDM Narrative: 27 yo male with PMH of PTSD here with c/o L upper dental pain no signs of deeper space infection at this time will start on oral antibiotics, no hx of seizures will start on tramadol has plans to follow up with oral surgeon Differential Diagnosis Differential Diagnoses: The differential diagnosis associated with the presentation includes dental decay, toothache, infection External Record Review External record reviewed: Inpatient record Prescription Management I considered prescription management with: Pain Medication and Antibiotic Discharge Plan Discharge Clinical Impression: Toothache Fracture of tooth Qualifiers: Encounter type: initial encounter Fracture type: closed Qualified Code(s): S02.5XXA - Fracture of tooth (traumatic), initial encounter for closed fracture Patient Disposition: Home, Self-Care Instructions: Toothache (ED) Additional Instructions: return for worsening symptoms - increased swelling, fevers, inability to open your jaw please follow up with dentist and oral surgeon as planned Prescriptions: New amoxicillin-pot clavulanate 875-125 mg tablet 1 tab PO BID Qty: 14 0RF tramadol 50 mg tablet 50 mg PO Q6H PRN (Reason: pain) 3 Days Qty: 12 0RF No Action famotidine [Pepcid] 20 mg tablet 20 mg PO BID 10 Days Qty: 20 0RF Print Language: Bhutanese
[2023-07-29] MEDS: traMADoL HCL 50 MG TABLET PO (03:07)
[2023-07-29] MEDS: Amoxicillin/Potassium Clav 875 MG TABLET PO (03:07)
[2023-07-29 03:11] VITALS: BP 114/75; PULSE 80; RESP 18; TEMP 36.6; O2SAT 99
== END 2023-07-29 03:12 | disposition home or self-care (01) ==
PROVIDERS: Emergency Provider Emergency Medicine
DX: S02.5XXA Fracture of tooth (traumatic), initial encounter for closed fracture (principal); X58.XXXA Exposure to other specified factors, initial encounter; Y93.9 Activity, unspecified; Y92.9 Unspecified place or not applicable; Y99.8 Other external cause status
CPT/HCPCS: 99283